=== PATIENT | male | born 1965 | race African-American/Black ===

== ENCOUNTER 2024-09-24 18:21 | Emergency (ER) | payer SELFPAY ==
[~2024-09-24] VITALS: Ht 182.9 cm; Wt 147.0 kg
[2024-09-24 18:23] VITALS: O2SAT 95
[2024-09-24] MEDS ORDERED: SODIUM CHLORIDE 0.9% 1,000 ML IV ONE (18:45)
[2024-09-24 19:54] LABS: HEMATOCRIT 36.6 % (42.0-52.0); HEMOGLOBIN 11.2 g/dL (14.0-18.0); MEAN CORPUSCULAR HEMOGLOBIN 22.9 pg (28.0-32.0); MEAN CORPUSCULAR HGB CONC 30.7 g/dL (31.0-37.0); MEAN CORPUSCULAR VOLUME 74.7 fL (80.0-94.0); PLATELET 278 x1000/uL (130-400); RED BLOOD CELL COUNT 4.89 mill/uL (4.7-6.1); RED CELL DISTRIBUTION WIDTH 17.5 % (11.6-14.6); WHITE BLOOD COUNT 9.8 x1000/uL (4.5-11.0)
[2024-09-24 19:57] LABS: POTASSIUM 3.6 mEq/L (3.5-5.1)
[2024-09-24 19:59] LABS: CALCIUM 9.2 mg/dL (8.7-10.4)
[2024-09-24 20:04] LABS: CREATININE 1.9 mg/dL (0.6-1.3)
[2024-09-24 23:42] VITALS: BP 106/64; PULSE 104; RESP 18; TEMP 36.39180; O2SAT 96
== END 2024-09-24 23:50 | disposition home or self-care (01) ==
LOC: ER 18:21 → EDBEDREQ 21:42 → EDBEDREQTM 21:42 → ER 23:50
DX: F10.229 Alcohol dependence with intoxication, unspecified (principal); E11.9 Type 2 diabetes mellitus without complications; G31.89 Other specified degenerative diseases of nervous system; Y90.8 Blood alcohol level of 240 mg/100 ml or more
CPT/HCPCS: 80048; 80320; 85027; 36415; 70450; 99284; J7030; G0480